=== PATIENT | female | born 1975 | race Caucasian/White ===

== ENCOUNTER 2023-10-07 11:59 | Emergency (ER) | payer MEDICAID, SELFPAY ==
[2023-10-07 12:03] VITALS: BP 127/87; BMI 27.5
--- NOTE | 2023-10-07 12:47 | ED.GENMED ---
History of Present Illness
General
Chief Complaint: Skin Problem
Source: patient
Exam Limitations: none
Time Seen by Provider: 10/07/23 12:37
History of Present Illness
History of Present Illness:
See MDM
Past History
Past History
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
ED Past Surgical History: Orthopedic
Social History
Tobacco: Former smoker
Alcohol: Former
Drug: Former user
Personal:
Living: with family
Employment: Employed
Family History
Family History: Hypertension
Phy Exam
Physical Exam
Physical Exam:
See MDM
Course
Orders/Labs/Results
Orders:
Orders
10/07/23 12:46
Oxycodone [Roxicodone] 5 mg PO NOW STA
10/07/23 12:47
Valacyclovir HCl [Valtrex] 1,000 mg PO ONCE ONE
Test Result ONCE
10/07/23 12:53
Complete Blood Count/With Diff Urgent
Comprehensive Metabolic Panel Urgent
HCG, Serum Qualitative Screen Urgent
TSH Reflex To Free T4 Urgent
Abnormal Lab Results
10/07/23
12:53
WBC 12.5 H 10^3/uL
(4.8-10.8)
MCH 31.3 H pg
(27.0-31.0)
MPV 10.8 H fL
(7.4-10.4)
Absolute Neuts (auto) 9.8 H 10^3/uL
(1.4-6.5)
Absolute Monos (auto) 0.8 H 10^3/uL
(0.1-0.6)
Neutrophils % 78.2 H %
(42.2-75.2)
Lymphocytes % 14.0 L %
(20.5-51.1)
Carbon Dioxide 19 L mmol/L
(22-30)
Albumin 5.2 H g/dl
(3.5-5.0)
10/07/23 12:53
10/07/23 12:53
Vital Signs
Initial and Last Documented VS:
Initial Vital Signs
Temp Pulse Resp BP Pulse Ox
98.1 F 74 16 127/87 100
10/07/23 12:03 10/07/23 12:03 10/07/23 12:03 10/07/23 12:03 10/07/23 12:03
Last Documented Vital Signs
Temp Pulse Resp BP Pulse Ox
98.1 F 74 16 127/87 100
10/07/23 12:03 10/07/23 12:03 10/07/23 12:03 10/07/23 12:03 10/07/23 12:03
MDM/Problems Addressed
Differential Diagnosis Includes:
HPI and MDM Narrative:
48-year-old female presenting with a rash along her right flank. Patient is concerned this could be shingles. She had similar issues 3 years ago. Patient states the rash is painful. Patient also complaining of increased fatigue. She is worried
there could be something else going on. We discussed that the shingles are likely related to the increased stress that she has been under recently. Will treat this with valacyclovir. Patient states she has had electrolyte abnormalities in the
past and this information, will obtain basic blood work
Physical exam
General: Well appearing and non-toxic
HEENT: protecting airway
Neck: appears supple
CV: No evidence of cyanosis
Resp: No accessory muscle use
Abd: Non-distended
Extremities: No deformities
Neuro: alert
Psych: Normal affect
Skin: Linear papular rash along L1 dermatome on the right. Does not cross midline
Problems Addressed including Acute and Chronic Conditions affecting care:
1. Shingles
Acuity: acute
Prognosis: stable
Details: Will start valacyclovir
2. Fatigue
Acuity: acute
Prognosis: stable
Details: Will obtain basic blood work
Updates
On reassessment, patient feeling better. Discussed return precaution
Differential Diagnosis (but not limited to): Shingles, hypothyroidism, hypocalcemia
Testing considered: Urinalysis but she denies symptoms
Drug therapy (if applicable): OTC meds, please see d/c instruction regarding Rx drugs
Amount and/or Complexity of Data Reviewed
Clinical info obtained from: Patient
External data reviewed: N/A
Labs I independently reviewed (but not limited to): Mild leukocytosis
Radiology: N/A
Pulse Ox: not hypoxic
EKG independently reviewed: N/A
Plastic Joint Maker: N/A
Critical Care: N/A
Risk of Complication:
Social Determinants of health: Good social support
Discussed with other providers: N/A
Escalation of Care includes Admit/Obs: After being observed in the Emergency Department, pt stable for discharge.
Occasional wrong word or 'sound a like' substitutions may have occurred due to the inherent limitations of voice recognition software. Read the chart carefully and recognize, using context, where substitutions have occurred.
*Critical Care Note
Total Time (30-74mins, 75-104mins- exclusive of procedures): Not Applicable
ED Attending Note
-
Portions of this chart may have been created with voice recognition software.� Occasional wrong word or��sound alike� substitutions may have occurred due to the inherent limitations of voice recognition software.
Discharge Plan
Departure
Patient Disposition: Home (Routine Discharge)
Date of Disposition: 10/07/23
Time of Disposition: 14:46
Patient with high blood pressure during this ER visit?: No
Discharge Problem:
Shingles
Instructions: Shingles
Prescriptions:
New
valacyclovir [Valtrex] 1 gram tablet
1,000 mg PO TID Qty: 21 0RF
oxycodone 5 mg tablet
5 mg PO Q8H PRN (Reason: Pain) Qty: 10 0RF
No Action
ascorbic acid (vitamin C) [Vitamin C] 500 MG tablet
500 mg PO DAILY
ferrous sulfate [Iron (ferrous sulfate)] 325 MG tablet
325 mg PO DAILY
folic acid 1 MG tablet
1 mg PO DAILY
cholecalciferol (vitamin D3) [Vitamin D3] 1,000 UNIT capsule
1,000 unit PO DAILY
docosahexaenoic acid 100 MG capsule
1 tab PO DAILY
turmeric root extract 500 MG capsule
500 mg PO DAILY
vit [id number] [ Multi-DHA (algal oil)] 1 EACH capsule
1 ea PO DAILY
calcium carb and citrat-mag ox [CalMag Thins] 1 EACH tablet
2 ea PO DAILY
Curcumin
500 mg PO DAILY
Thyroid Balance
1 tab PO DAILY
sertraline [Zoloft] 100 MG tablet
100 mg PO DAILY
valacyclovir [Valtrex] 1,000 MG tablet
500 mg PO DAILY
oxycodone-acetaminophen 5 MG/325 MG tablet
1 tab PO Q4HPRN PRN (Reason: moderate pain) Qty: 20 0RF
ibuprofen 600 MG tablet
600 mg PO Q4HPRN PRN (Reason: cramps) 0RF
Referrals:
Adela Quinteros NP [Family Provider] -
Activity Restrictions/Additional Instructions:
Please return for any worsening symptoms.
You may return at any time if you have further concerns.
Please follow up with your doctor at the first available appointment, preferably this week.
Thank you for choosing [facility].
Interventions
Interventions:
*Risk Screen - Suicide Last Done: 10/07/23 12:03
*General Assessment Last Done: 10/07/23 12:14
*Neglect/Abuse Screening Last Done: 10/07/23 12:03
*ED COVID-19 Vaccine History Last Done: 10/07/23 12:14
Discharge Date and Time
Print Language: GABONESE
[2023-10-07] MEDS: ROXICODONE 5 MG PO (12:59)
[2023-10-07] MEDS: VALTREX 1000 MG PO (12:59)
[2023-10-07 13:03] LABS: % Basophils 0.6 % (0-2); % Eosinophils 0.7 % (0-6); % Immature Granulocytes 0.3 % (0-0.5); % Monocytes 6.2 % (1.7-9.3); % Neutrophils 78.2 % (42.2-75.2); Absolute Basophils 0.1 10^3/uL (0-0.2); Absolute Eosinophils 0.1 10^3/uL (0-0.7); Absolute Lymphocytes 1.8 10^3/uL (1.2-3.4); Absolute Monocytes 0.8 10^3/uL (0.1-0.6); Absolute Neutrophils 9.8 10^3/uL (1.4-6.5); Hematocrit 43.4 % (37.0-47.0); Mean Corp Hgb Conc. 34.6 g/dL (33.0-37.0); Mean Corpuscular Hgb 31.3 pg (27.0-31.0); Mean Corpuscular Volume 90.6 fL (81.0-99.0); Mean Platelet Volume 10.8 fL (7.4-10.4); Nucleated Red Blood Cells % 0 %; Platelet Count 281 10^3/uL (130-400); Red Blood Cell Count 4.79 10^6/uL (4.20-5.40); Red Cell Dist. Width 12.1 % (11.5-14.5); White Blood Cell Count 12.5 10^3/uL (4.8-10.8)
[2023-10-07 13:12] LABS: HCG, Serum Qualitative Screen Negative
[2023-10-07 13:16] LABS: ALT (SGPT) 18 U/L (0-35); AST (SGOT) 23 U/L (14-36); Albumin 5.2 g/dl (3.5-5.0); Alkaline Phosphatase 65 U/L (38-126); Blood Urea Nitrogen 17 mg/dl (7-17); Calcium 9.8 mg/dl (8.4-10.2); Carbon Dioxide 19 mmol/L (22-30); Chloride 104 mmol/L (98-107); Estimated Creatinine Clearance 91 ml/min; Glucose 89 mg/dl (70-99); Potassium 4.5 mmol/L (3.5-5.1); Sodium 137 mmol/L (135-145); Total Protein 7.6 g/dl (6.3-8.2); eGFR > 60.00
[2023-10-07 13:45] LABS: TSH Reflex To Free T4 1.17 uIU/ml (0.47-4.68)
== END 2023-10-07 15:02 | disposition home or self-care (01) ==
LOC: EMR 11:59
PROVIDERS: EMERGENCY PHYSICIAN Student in an Organized Health Care Education/Training Program; FAMILY PHYSICIAN Nurse Practitioner Adult Health
DX: B02.9 Zoster without complications (principal); E03.9 Hypothyroidism, unspecified; M79.7 Fibromyalgia; Z82.49 Family history of ischemic heart disease and other diseases of the circulatory system; Z87.891 Personal history of nicotine dependence
CPT/HCPCS: 99283; 80053; 84443; 84703; 85025